=== PATIENT | male | born 1995 | race Caucasian/White ===

== ENCOUNTER 2016-10-26 13:18 | Emergency (ER) | payer OTHER ==
[~2016-10-26] VITALS: Ht 185.4 cm; Wt 108.4 kg
[2016-10-26 13:31] VITALS: BP 152/90
[2016-10-26] MEDS ORDERED: diazePAM 5 MG TABLET PO ONE (13:45)
[2016-10-26] MEDS ORDERED: HYDROcodone/APAP 5/325MG 1 TAB TABLET PO ONE (13:45)
--- NOTE | 2016-10-26 13:54 | RAD ---
Examination: 3 views of the cervical spine History: History of injury, neck pain Comparison: None available Findings: The vertebral body heights are maintained. The alignment of the vertebral bodies grossly appears unremarkable. The facets appear to be well aligned. No obvious prevertebral soft tissue swelling identified. Lateral masses of C1 are aligned with C2 vertebra. The C2 dens appears intact. Impression: No obvious acute osseous findings.
[2016-10-26] MEDS ORDERED: CYCL10TA2 PO (14:10)
[2016-10-26] MEDS ORDERED: NAPR375T3 PO (14:10)
--- NOTE | 2016-10-26 14:10 | PHYS DOC ---
Past Medical History Past Medical History: Hypertension, Renal Disease, Other Additional Past Medical Histor: POLYCYSTIC KIDNEY DISEASE Past Surgical History: Other Additional Past Surgical Histo: CARDIAC ABLATION 2004 Alcohol Use: Occasionally Drug Use: None Adult General Chief Complaint Chief Complaint: Neck Pain HPI HPI Patient is a 21 year old male with history of hypertension and kidney disease who presents with mild right lateral neck pain that began yesterday after two 12 packs of beer fell on his neck. He states he was working in a cooler trying to move some beer when this happened. Patient denies any loss of consciousness. Review of Systems Review of Systems Constitutional: Denies fever or chills [] Eyes: Denies change in visual acuity, redness, or eye pain [] HENT: Denies nasal congestion or sore throat [] Respiratory: Denies cough or shortness of breath [] Cardiovascular: No additional information not addressed in HPI [] GI: Denies abdominal pain, nausea, vomiting, bloody stools or diarrhea [] : Denies dysuria or hematuria [] Musculoskeletal: Right lateral neck pain Integument: Denies rash or skin lesions [] Neurologic: Denies headache, focal weakness or sensory changes [] Current Medications Current Medications Current Medications Medications (Trade) Dose Ordered Sig/Rani Start Time Stop Time Status Last Admin Dose Admin Acetaminophen/ Hydrocodone Bitart (Lortab 5/325) 1 tab 1X ONCE 10/26/16 13:45 10/26/16 13:46 DC 10/26/16 13:48 1 TAB Diazepam (Valium) 5 mg 1X ONCE 10/26/16 13:45 10/26/16 13:46 DC 10/26/16 13:48 5 MG Allergies Allergies Allergies Coded Allergies Type Severity Reaction Last Updated Verified No Known Drug Allergies 10/26/16 No Physical Exam Physical Exam Constitutional: Well developed, well nourished, no acute distress, non-toxic appearance. [] HENT: Normocephalic, atraumatic, bilateral external ears normal, oropharynx moist, no oral exudates, nose normal. [] Eyes: PERRLA, EOMI, conjunctiva normal, no discharge. [] Neck: Normal range of motion, diffuse paraspinal muscle tenderness to the right lateral cervical spine, no midline cervical spine tenderness, supple, no stridor. Cardiovascular:Heart rate regular rhythm, no murmur [] Lungs & Thorax: Bilateral breath sounds clear to auscultation [] Abdomen: Bowel sounds normal, soft, no tenderness, no masses, no pulsatile masses. [] Skin: Warm, dry, no erythema, no rash. [] Back: No tenderness, no CVA tenderness. [] Extremities: No tenderness, no cyanosis, no clubbing, ROM intact, no edema. [] Neurologic: Alert and oriented X 3, normal motor function, normal sensory function, no focal deficits noted. [] Psychologic: Affect normal, judgement normal, mood normal. [] Current Patient Data Vital Signs Vital Signs Date Time Temp Pulse Resp B/P (MAP) Pulse Ox O2 Delivery O2 Flow Rate FiO2 10/26/16 13:31 97.8 60 16 97 Room Air 97.8 EKG EKG [] Radiology/Procedures Radiology/Procedures [] Course & Med Decision Making Course & Med Decision Making Pertinent Labs and Imaging studies reviewed. (See chart for details) Patient is in the ED with right lateral neck pain that began yesterday after two 12 packs of beer fell on his right lateral neck. Cervical spine x-rays interpreted by radiologist were negative for any acute findings. Patient was discharged with cyclobenzaprine. He was also discharged with naproxen. Heat recommended to the cervical spine. Follow-up with PCP from the list provided in 1-2 weeks. Mj Disclaimer Nyaon Disclaimer This electronic medical record was generated, in whole or in part, using a voice recognition dictation system. Departure Departure Impression: Primary Impression: Acute cervical sprain Disposition: 01 HOME, SELF-CARE Condition: STABLE Referrals: NO PCP (PCP) Follow-up with a doctor from the list provided in one week Patient Instructions: Cervical Sprain Additional Instructions: You were seen for acute cervical spine sprain. Apply heat to the neck. Take the prescribed medicines as needed for pain. Do not drive or operate machinery on the muscle relaxer/cyclobenzaprine. Follow-up with a doctor from the list provided in one week. Scripts Naproxen (NAPROXEN) 375 Mg Tablet 1 TAB PO BID, #20 TAB 0 Refills Prov: MUTUNGAOLIVIA ACID LEVELER 10/26/16 Cyclobenzaprine Hcl (CYCLOBENZAPRINE HCL) 10 Mg Tablet 1 TAB PO TID, #30 TAB Prov: ROGEAOLIVIA ACID LEVELER 10/26/16 Problem Qualifiers Primary Impression: Acute cervical sprain Encounter type: initial encounter Qualified Codes: S13.9XXA - Sprain of joints and ligaments of unspecified parts of neck, initial encounter OLIVIA DOTSON ACID LEVELER Oct 26, 2016 14:10
== END 2016-10-26 14:23 | disposition home or self-care (01) ==
LOC: ER 13:18
DX: S13.4XXA Sprain of ligaments of cervical spine, initial encounter (principal); I12.9 Hypertensive chronic kidney disease with stage 1 through stage 4 chronic kidney disease, or unspecified chronic kidney disease; N18.9 Chronic kidney disease, unspecified; X58.XXXA Exposure to other specified factors, initial encounter; Y93.89 Activity, other specified; Y99.8 Other external cause status; Y92.89 Other specified places as the place of occurrence of the external cause
CPT/HCPCS: 72040; 99284